=== PATIENT | female | born 1975 | race Caucasian/White ===

== ENCOUNTER 2024-04-08 16:46 | Emergency (ER) | payer BC, OTHER ==
[~2024-04-08] VITALS: Ht 160 cm; Wt 141.1 kg
[2024-04-08 16:51] VITALS: BP_SYST 156; PULSE 96; RESP 16; TEMP 98; O2SAT 94
[2024-04-08] MEDS ORDERED: CEPH-548 PO (17:43)
[2024-04-08 17:46] VITALS: BP_SYST 156; PULSE 96; RESP 16; TEMP 98; O2SAT 94
== END 2024-04-08 17:48 | disposition home or self-care (01) ==
LOC: SED 16:46
DX: L03.114 Cellulitis of left upper limb (principal); Z88.2 Allergy status to sulfonamides; Z90.49 Acquired absence of other specified parts of digestive tract; Z90.710 Acquired absence of both cervix and uterus
CPT/HCPCS: 99283